=== PATIENT | male | born 1975 | race Caucasian/White ===

== ENCOUNTER 2019-01-16 02:14 | Emergency (ER) | payer BC ==
--- NOTE | 2019-01-16 02:30 | EDM.PDOC ---
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 He has had upper respiratory symptoms for the last 4 days including sinus pressure and sinus drainage and congestion a slight cough and a sore throat and is not sure if his symptoms are progressing now to involve his ear. He's had no drainage from the ear and has no headache or neck pain. He's had no nausea vomiting or diarrhea. He is only used [id number]-[id number] Mucinex and occasionally some Sudafed but nothing on any regular basis. He says he came in this evening because he feels like he has ear is plugged up and that might be wax or something in there and he is concerned because he only has a small amount of hearing left in that ear and he is concerned about it. On the to the ear or the head Review of systems: As per history of present illness and below otherwise all systems reviewed and negative. Past medical history: As per history of present illness and as reviewed below otherwise noncontributory. Surgical history: As per history of present illness and as reviewed below otherwise noncontributory. Social history: No reported history of drug or alcohol abuse. Family history: As per history of present illness and as reviewed below otherwise noncontributory. Physical exam: Well-developed well-nourished man who is nontoxic and vital signs are noted by me. He does have nasal quality to voice HEENT: Atraumatic, normocephalic, pupils reactive, negative for conjunctival pallor or scleral icterus, mucous membranes moist, throat clear, neck supple, nontender, trachea midline. There is no cervical adenopathy or nuchal rigidity. The turbinates are mildly boggy bilaterally and there is only mild sinus tenderness in the frontal and maxillary areas on palpation. TMs are dulled bilaterally and there is no grossly impacted cerumen no edema or erythema of the external canal and no drainage. There is no mastoid tenderness or erythema. In looking at the tympanic membranes the left, the site in question for the patient, actually looks last dulled her than the right side and has a better light reflex; the TMs are not bulging bilaterally or reddened Lungs: Clear to auscultation, breath sounds equal bilaterally, chest nontender. Heart: S1S2, regular rate and rhythm no overt murmurs Abdomen: Soft, nondistended, nontender. NABS Pelvis: Deferred Genitourinary: Deferred. Rectal: Deferred. Extremities: Atraumatic, negative for cords or calf pain. Neurovascular unremarkable. Neuro: Awake, alert, oriented. Cranial nerves II through XII unremarkable. Cerebellum unremarkable. Motor and sensory unremarkable throughout. Exam nonfocal. Diagnostics: [] Therapeutics: [] Impression: Sinusitis Definitive disposition and diagnosis as appropriate pending reevaluation and review of above. - Related Data Allergies Allergy/AdvReac Type Severity Reaction Status Date / Time No Known Allergies Allergy Verified 01/16/19 02:21 Home Meds: Home Meds Lisinopril 1 tab PO DAILY 05/16/15 [History] atorvaSTATin [Lipitor] 20 mg PO DAILY 05/16/15 [History] Past Medical History - Past Health History Medical/Surgical History: Denies Medical/Surgical History HEENT History: Reports: Hard of Hearing, Other (See Below) Other HEENT History: hearing aid Cardiovascular History: Reports: High Cholesterol, Hypertension Social & Family History - Family History Family Medical History: Noncontributory - Tobacco Use Smoking Status *Q: Current Every Day Smoker Years of Tobacco use: 10 Packs/Tins Daily: 1 - Recreational Drug Use Recreational Drug Use: No ED ROS GENERAL - Review of Systems Review Of Systems: ROS reveals no pertinent complaints other than HPI. ED EXAM, GENERAL - Physical Exam Exam: See Below (See dictation) Course - Vital Signs Last Recorded V/S: Last Vital Signs Temp 36.1 C 01/16/19 02:16 Pulse 99 01/16/19 02:16 Resp 18 01/16/19 02:16 BP 140/87 01/16/19 02:16 Pulse Ox 97 01/16/19 02:16 Departure - Departure Time of Disposition: 02:29 Disposition: Home, Self-Care 01 Condition: Good Clinical Impression: Sinusitis Qualifiers: Sinusitis location: unspecified location Chronicity: unspecified Qualified Code (s): J32.9 - Chronic sinusitis, unspecified - Discharge Information Referrals: PCP,None [Primary Care Provider] - Additional Instructions: The following information is given to patients seen in the emergency department who are being discharged to home. This information is to outline your options for follow-up care. We provide all patients seen in our emergency department with a follow-up referral. The need for follow-up, as well as the timing and circumstances, are variable depending upon the specifics of your emergency department visit. If you don't have a primary care physician on staff, we will provide you with a referral. We always advise you to contact your personal physician following an emergency department visit to inform them of the circumstance of the visit and for follow-up with them and/or the need for any referrals to a consulting specialist. The emergency department will also refer you to a specialist when appropriate. This referral assures that you have the opportunity for followup care with a specialist. All of these measure are taken in an effort to provide you with optimal care, which includes your followup. Under all circumstances we always encourage you to contact your private physician who remains a resource for coordinating your care. When calling for followup care, please make the office aware that this follow-up is from your recent emergency room visit. If for any reason you are refused follow-up, please contact the [facility] emergency department at and ask to speak to the emergency department charge nurse. [facility] Primary care- [place] [address] Please take antibiotics, Augmentin, as you have been prescribed this evening from [facility]. Push hydration and use [id number] Claritin or [place] for the next 10 days to help decompress and drain fluid that in your sinuses. Use [id number] Tylenol and ibuprofen for any pain or fevers. You may use any other [id number] preps as you choose. You may also try Flonase to help open up the nasal passages and allow for drainage. Please call and schedule a follow-up appointment with your provider or one of ours for further care and reevaluation and return to ER as needed and as discussed
[2019-01-16 02:51] VITALS: BP 128/80
== END 2019-01-16 02:40 | disposition home or self-care (01) ==
LOC: MW.ED 02:14
DX: J32.9 Chronic sinusitis, unspecified (principal); I10 Essential (primary) hypertension; F17.210 Nicotine dependence, cigarettes, uncomplicated; E78.00 Pure hypercholesterolemia, unspecified; Z79.899 Other long term (current) drug therapy; Z97.4 Presence of external hearing-aid
CPT/HCPCS: 99282

== ENCOUNTER 2023-10-29 10:16 | Day surgery (SDC) | payer BC ==
[~2023-10-29 10:16] MED LIST: Lactated Ringers 1,000 ML IV SCH; Sodium Chloride 0.9% 10 ML Syringe FLUSH PRN; Sodium Chloride 0.9% 2.5 ML Syringe FLUSH PRN; Sodium Chloride 0.9% 20 ML SDV IV PRN
[2023-10-29] MEDS ORDERED: propofoL 50 ML ONE (10:51)
[2023-10-29 12:28] VITALS: PULSE 76
[2023-10-29 13:25] VITALS: BP 132/90
== END 2023-10-29 12:53 | disposition home or self-care (01) ==
LOC: MW.SDS 10:16
PROVIDERS: ATTEND Surgery
DX: Z12.11 Encounter for screening for malignant neoplasm of colon (principal); K63.5 Polyp of colon; I10 Essential (primary) hypertension; E78.00 Pure hypercholesterolemia, unspecified; G47.33 Obstructive sleep apnea (adult) (pediatric); Z79.899 Other long term (current) drug therapy
CPT/HCPCS: 45380; J2704; J7120; 00811

== ENCOUNTER 2024-01-21 10:29 | Emergency (ER) | payer BC ==
[2024-01-21 11:00] VITALS: BP 160/82; PULSE 92
== END 2024-01-21 10:55 | disposition home or self-care (01) ==
LOC: MW.ED 10:29
DX: H66.92 Otitis media, unspecified, left ear (principal); I10 Essential (primary) hypertension; E78.00 Pure hypercholesterolemia, unspecified; E66.9 Obesity, unspecified; Z75.8 Other problems related to medical facilities and other health care; Z79.899 Other long term (current) drug therapy; Z68.37 Body mass index [BMI] 37.0-37.9, adult
CPT/HCPCS: 99282; 99283